=== PATIENT | female | born 1945 | race Caucasian/White ===

== ENCOUNTER → 2016-08-07 | Outpatient (CLI) | payer OTHER, MEDICARE | LOC: BMCIMAGING 08:58 | DX: Z12.31 Encounter for screening mammogram for malignant neoplasm of breast (principal) | CPT/HCPCS: G0202 ==

== ENCOUNTER 2017-04-29 05:41 | Observation (INO) | payer OTHER, MEDICARE ==
[2017-04-29] MEDS ORDERED: ROPIVACAINE 0.2% 80 MG, EPINEPHrine 0.2 MG, KETOROLAC TROMETHAMINE 30 MG in SYRINGE 0 ML IU ONE ×2 (06:00→13:05)
[2017-04-29] MEDS ORDERED: FAMOTIDINE 20 MG TAB PO ONE (06:16)
[2017-04-29] MEDS ORDERED: ceFAZolin 2 GM/SWFI 2 GM/20 ML SYR IVP ONE (06:16)
[2017-04-29] MEDS ORDERED: DEXAMETHASONE 4 MG/ML VIAL IVP ONE (06:16)
[2017-04-29] MEDS ORDERED: LIDOCAINE 1% 2 ML INJ ID PRN (06:16)
[2017-04-29] MEDS ORDERED: LR 1,000 ML IV ONE (06:16)
[2017-04-29] MEDS ORDERED: ACETAMINOPHEN 325 MG TAB PO ONE (06:16)
[2017-04-29] MEDS ORDERED: CALCIUM CHLORIDE 1 GM/10 ML INJ ONE (07:02)
[2017-04-29] MEDS ORDERED: THROMBIN (BOVINE) 5,000 UNIT VIAL TP ONE (07:02)
--- NOTE | 2017-04-29 07:02 | PDHPUP ---
History & Physical Update H&P update statement: This history and physical update is based on an assessment of the patient which was completed after admission or registration (within 24 hours), but prior to the surgery/procedure. H&P update: H&P reviewed & patient examined, no change in patient's condition since H&P completed
[2017-04-29] MEDS ORDERED: ceFAZolin 1 GM/5 ML SYR ONE (07:03)
[2017-04-29] MEDS ORDERED: MIDAZOLAM 2 MG/2 ML VIAL ONE (07:06)
[2017-04-29] MEDS ORDERED: MIDAZOLAM 2 MG/2 ML VIAL IVP ONE (07:08)
[2017-04-29] MEDS ORDERED: fentaNYL 100 MCG/2 ML INJ ONE ×3 (07:16→11:06)
[2017-04-29] MEDS ORDERED: PROPOFOL/EMULSION 500 MG/50 ML BOTTLE IV ONE ×3 (07:34→08:59)
[2017-04-29] MEDS ORDERED: epHEDrine SULFATE 10 MG/ML SYR IVP PRN (07:52)
[2017-04-29] MEDS ORDERED: ONDANSETRON 4 MG/2 ML VIAL IVP PRN ×2 (07:52→10:57)
[2017-04-29] MEDS ORDERED: PHENYLEPHRINE HCL 100 MCG/ML SYR IVP PRN (07:52)
[2017-04-29] MEDS ORDERED: NALOXONE HCL 0.4 MG/ML INJ IVP PRN (07:52)
[2017-04-29] MEDS ORDERED: HYDROmorphONE/DILAUDID 1 MG/ML INJ IVP PRN (07:52)
[2017-04-29] MEDS ORDERED: PROMETHAZINE HCL 25 MG/ML INJ IVP PRN ×2 (07:52→10:57)
[2017-04-29] MEDS ORDERED: DEXAMETHASONE 4 MG/ML VIAL IVP PRN (07:52)
[2017-04-29] MEDS ORDERED: ALBUTEROL 3 ML DEYVIAL IH PRN (07:52)
--- NOTE | 2017-04-29 07:52 | PDANEPAE ---
ANE History of Present Illness here for R TKA ANE Past Medical History - Cardiovascular History Hx Hypertension: Yes Hx Arrhythmias: No Hx Chest Pain: No Hx Coronary Artery / Peripheral Vascular Disease: No Hx CHF / Valvular Disease: No Hx Palpitations: No Cardiovascular History Comment: TIA 2012 unknown etiology - Pulmonary History Hx COPD: No Hx Asthma/Reactive Airway Disease: No Hx Recent Upper Respiratory Infection: No Hx Oxygen in Use at Home: No Hx Sleep Apnea: No Sleep Apnea Screening Result - Last Documented: Positive - Neurologic History Hx Cerebrovascular Accident: Yes Hx Seizures: No Hx Dementia: No Neurologic History Comment: TIA 2012 - Endocrine History Hx Diabetes: No - Renal History Hx Renal Disorders: No - Liver History Hx Hepatic Disorders: No - Neurological & Psychiatric Hx Hx Neurological and Psychiatric Disorders: Yes Neurological / Psychiatric History Comment: depression - Cancer History Hx Cancer: No - Congenital Disorder History Hx Congenital Disorders: No - GI History Hx Gastrointestinal Disorders: Yes Gastrointestinal History Comment: heartburn - Other Health History Other Health History: arthritis - Chronic Pain History Chronic Pain: No - Surgical History Prior Surgeries: x 2. hysterectomy. ORIF right wrist ANE Review of Systems Review of systems is: negative Review of Systems: - Exercise capacity Exercise capacity: >=4 METS METS (RN): 4 METS ANE Patient History - Allergies Allergies/Adverse Reactions: Penicillins Allergy (Verified 10/06/12 13:16) Tetracyclines Allergy (Verified 10/06/12 13:16) - Home Medications Home medications: home medication list seen and reviewed Home Medications: Aspirin [Aspirin 81mg (OTC)] 81 mg PO HS 10/06/12 [Last Taken 04/05/17] Citalopram [celeXA 20 MG (RX)] 20 mg PO DAILY 10/06/12 [Last Taken 04/29/17 04: 00] Irbesartan [Avapro 150 mg (RX)] 150 mg PO DAILY 10/06/12 [Last Taken 04/29/17 04 :00] Simvastatin [Zocor 20 mg (RX)] 20 mg PO DAILY18 10/06/12 [Last Taken 1 Day Ago ~ 04/28/17] amLODIPine BESYLATE [Norvasc] 10 mg PO DAILY 10/06/12 [Last Taken 04/29/17 04:00 ] Clopidogrel Bisulfate [Plavix (*)] 75 mg PO DAILY 03/29/17 [Last Taken 04/21/17] Herbals/Supplements -Info Only 1 ea PO DAILY 03/29/17 [Last Taken 1 Day Ago ~] Hydrochlorothiazide [HCTZ (*)] 25 mg PO DAILY 03/29/17 [Last Taken 1 Day Ago ~] - NPO status NPO Status: no food or drink >8 hours NPO Since - Liquids (Date): 04/28/17 NPO Since - Liquids (Time): 22:00 NPO Since - Solids (Date): 04/28/17 NPO Since - Solids (Time): 19:30 - Smoking Hx Smoking Status: Never smoked - Family Anes Hx Family Hx Anesthesia Complications: none ANE Labs/Vital Signs - Vital Signs Vital Signs: reviewed preoperatively; see RN documention for details Blood Pressure: 120/70 Heart Rate: 86 Respiratory Rate: 18 O2 Sat (%): 92 Height: 170.18 cm Weight: 108.862 kg ANE Physical Exam - Airway Neck exam: short neck Mallampati Score: Class 2 Mouth exam: normal dental/mouth exam - Pulmonary Pulmonary: no respiratory distress - Cardiovascular Cardiovascular: regular rate and rhythym - ASA Status ASA Status: III ANE Anesthesia Plan Anesthesia Plan: spinal
[2017-04-29] MEDS ORDERED: PROPOFOL 200 MG/20 ML VIAL ONE ×2 (09:56→10:10)
--- NOTE | 2017-04-29 10:55 | POSTOPPROG ---
Post Op Note Date of Operation: 04/29/17 Surgeon: Carol Ayers Dialysis Biomed Technician: Yvonne Reece PA-C Anesthesiologist: Dr. Jose Luis Collazo Anesthesia: GET(General Endotracheal) Pre-op Diagnosis: right knee osteoarthritis Post-op Diagnosis: right knee osteoarthritis Indication: right knee pain Procedure: right TKA Inf/Abcess present in the surg proc area at time of surgery?: No EBL: 50-100 Complications: none
[2017-04-29] MEDS ORDERED: BISACODYL 10 MG SUPP PR PRN (10:57)
[2017-04-29] MEDS ORDERED: CYCLOBENZAPRINE 10 MG TAB PO PRN (10:57)
[2017-04-29] MEDS ORDERED: PROMETHAZINE HCL 25 MG SUPPR PR PRN (10:57)
[2017-04-29] MEDS ORDERED: POLYETHYLENE GLYCOL 3350 17 GM PKT PO PRN (10:57)
[2017-04-29] MEDS ORDERED: DIPHENOXYLATE/ATROPINE LOMOTIL 1 TAB PO PRN (10:57)
[2017-04-29] MEDS ORDERED: LACTULOSE 20 GM/30 ML UDCUP PO PRN (10:57)
[2017-04-29] MEDS ORDERED: ONDANSETRON DISINTEGRATING 4 MG TAB PO PRN (10:57)
[2017-04-29] MEDS ORDERED: MAGNESIUM HYDROXIDE 30 ML UDCUP PO PRN (10:57)
[2017-04-29] MEDS ORDERED: diphenhydrAMINE 25 MG CAP PO PRN (10:57)
--- NOTE | 2017-04-29 10:57 | SOAPPROG ---
SOAP Progress Note Assessment/Plan: Assessment/Plan: 71y/o female s/p right TKA - orders as written - no knee flexion beyond 60 degrees, t-scope brace - xrays pending - PT/OT - will likely resume Plavix POD#1 - anticipate dc home tomorrow pending clinical course - call with issues or concerns 04/29/17 10:55 Subjective: Minimal pain Objective: Vital Signs Temp Pulse Resp BP Pulse Ox 36.8 C 86 18 120/70 92 04/29/17 06:21 04/29/17 07:52 04/29/17 07:52 04/29/17 07:52 04/29/17 07:52 NAD, no distress EOMi, face symmetric MAEx4 incision clean, dressed ICD10 Worksheet Patient Problems: Problems Problem Status Onset Knee pain Acute - ICD10 Problem Qualifiers (1) Knee pain
--- NOTE | 2017-04-29 10:59 | POSTANESTH ---
Post Anesthetic Evaluation Cardiovascular Status: Normal, Stable Respiratory Status: Normal, Stable Level of Consciousness/Mental Status: Can Participate in Eval Pain Control: Adequate, Prn Tx Ordered Nausea/Vomiting Control: Adequate, Prn Tx Ordered Complications Possibly Related to Anesthesia: None Noted
[2017-04-29] MEDS ORDERED: LR 1,000 ML IV SCH (11:00)
[2017-04-29] MEDS: fentaNYL 100 MCG/2 ML INJ IVP PRN ×3 (11:08→11:23)
[2017-04-29 12:03] VITALS: RESP 16
[2017-04-29] MEDS: ACETAMINOPHEN 325 MG TAB PO SCH ×2 (12:47→17:35)
[2017-04-29] MEDS: oxyCODONE IR 5 MG TAB PO PRN ×2 (14:59→21:16)
[2017-04-29] MEDS: ceFAZolin 2 GM/DEXTROSE 100 ML IV SCH ×2 (15:02→21:26)
--- NOTE | 2017-04-29 18:14 | GOP ---
[f rep st] OPERATIVE REPORT DATE OF OPERATION: 04/29/2017 SURGEON: Carol Ayers MD SAP PI ARCHITECT: Yvonne Reece, GEORGINA. ANESTHESIA: General with spinal. PREOPERATIVE DIAGNOSIS: Severe osteoarthritis, right knee. POSTOPERATIVE DIAGNOSIS: Severe osteoarthritis, right knee. PROCEDURE PERFORMED: Right total knee arthroplasty. FINDINGS: Preoperative exam of the patient's right knee demonstrated findings consistent with severe osteoarthritis. The patient had a preoperative flexion contracture measuring about 7 or 8 degrees. At the time of surgery a cemented Townsend [employer] II total knee arthroplasty was performed. A size 4 femoral component was implanted, and a size 5 tibial component was utilized. A 10 mm thic k cross-linked polyethylene insert was used in the metal backing of the tibia. A 35 mm round patella r button was used on the patella. The components were cemented into place, and the knee was taken th rough a range of motion. She achieved full extension and 130 degrees of flexion on the table. The k nee was stable to varus and valgus stress both in extension and flexion. ESTIMATED BLOOD LOSS: 150 cc. DESCRIPTION OF PROCEDURE: The patient was taken the operating room, placed in supine position on the operating table. Following placement of a spinal block and induction of adequate general inhalation anesthesia, the knee and leg were prepped and draped in the usual sterile manner. The patient recei santos 2 g of IV Ancef. The leg was elevated and exsanguinated, and the tourniquet inflated to 300 mmHg . The DeMayo leg damico was used through the procedure for positioning. A midline incision was made extending from 2 fingerbreadths above the superior pole of the patella distally to the tibial tuberc le. Incision was carried down through the subcutaneous tissue to the retinaculum of the knee. A med ial parapatellar arthrotomy was then performed. The patella was everted laterally and the thickness was measured. A 9 mm cut was taken from the patella. The metal patellar plate was placed on the cut surface and the patella was placed in the lateral gutter. Our attention was then turned to the femur. The distal femoral cut was made using intramedullary ref erencing. The jig was positioned on the distal femur and a +2 cut was taken due to the patient's pre existing flexion contracture. The block was then removed and the patella was sized. The size 4 femo ral component was felt to be the best fit. The size 4 femoral cutting block was then positioned on t he distal femur and the anterior, posterior and chamfer cuts were made. The notch was cleared with a reamer followed by the box osteotome. Our attention was then turned to the tibia. Again, intramedullary referencing was utilized. The int ramedullary guide was inserted and then the tibial block was positioned appropriately and pinned. Th e tibial cut was made. The lollipop spacer was then used to determine the flexion and extension gaps and the extension gap was still, tight so an additional 4 mm was taken from the proximal tibia. The tibia was then sized, and a size 5 tibial component was felt to be the best fit. It was pinned and then the femur was placed back on the distal femur and the 9 and 10 mm polyethylenes were trialed. T he best fit was with a 10 mm polyethylene. The trial components were removed except for the tibia, a nd the keel punch was utilized. The tibial component was then removed. The patella was prepared by drilling the cut surface of the patella. All the bony surfaces were thoroughly irrigated and dried, and then cement was mixed. The tibial component was inserted first, followed by the femoral componen t and the patella. The knee was then brought into extension with the 10 mm thick polyethylene in [place] ce. All excess cement was removed from around the edges of the components. Once the cement was hard , the polyethylene was removed and the posterior capsule was injected with joint cocktail. Prior to cementing the components, the osteophytes were removed from around the posterior tibia and femur as w ell. The polyethylene was then inserted and impacted into place. The knee was taken through a range of motion, and noted to be stable in flexion and extension. The wound was thoroughly irrigated out and the retinaculum of the knee was closed using #2 FiberWire in a [id number] fashion. The subcutaneous tissues were closed using 2-0 Vicryl in interrupted f ashion. The skin was closed using maria teresa. There was some fraying of the medial 25% to 30% of the p atellar tendon, so the patient was placed in a hinged knee brace from 0-60 for the first 2 weeks. Pl atelet gel was used in the deep and superficial portions of the wound to enhance wound healing. The remainder of the joint cocktail was injected into the extensor mechanism. The patient tolerated the procedure well. There were no complications. Estimated blood loss minimal. Final sponge and needle counts were correct. The patient was transported to the recovery room in good condition. /[id number]/MODL
[2017-04-29] MEDS: Simvastatin [Zocor] 20 MG PO SCH (18:46)
[2017-04-29] MEDS: SENNOSIDES/DOCUSATE SODIUM TAB PO SCH (21:16)
[2017-04-29] MEDS: FAMOTIDINE 20 MG TAB PO SCH (21:16)
[2017-04-29] MEDS ORDERED: FLU VACC QS 2017-18 (3YR+)/PF 0.5 ML SYR (FLUARIX QUAD) IM ONE (22:46)
[2017-04-30] MEDS: ACETAMINOPHEN 325 MG TAB PO SCH ×5 (00:24→23:46)
[2017-04-30] MEDS: oxyCODONE IR 5 MG TAB PO PRN ×6 (03:37→23:47)
[2017-04-30] MEDS: FAMOTIDINE 20 MG TAB PO SCH ×2 (08:36→20:40)
[2017-04-30] MEDS: SENNOSIDES/DOCUSATE SODIUM TAB PO SCH ×2 (08:36→20:40)
[2017-04-30] MEDS: FERROUS SULFATE 140 MG TAB.ER PO SCH (08:36)
[2017-04-30] MEDS: IRBESARTAN 150 MG TAB PO SCH (08:37)
[2017-04-30] MEDS: HYDROCHLOROTHIAZIDE 25 MG TAB PO SCH (08:39)
--- NOTE | 2017-04-30 14:36 | SOAPPROG ---
SOAP Progress Note Assessment/Plan: Assessment/Plan: 71y/o female s/p right TKA - orders as written - no knee flexion beyond 60 degrees, t-scope brace; this is to allow for patellar tendon healing - xrays show stable hardware - PT/OT, stairs prior to discharge - will resume Plavix tomorrow morning; continue TEDs/SCDs - anticipate dc home tomorrow tomorrow with home health care pending clinical course - call with issues or concerns 04/30/17 14:32 Subjective: Pain well controlled. [place] a little light headed this morning, improved now. Objective: Vital Signs Temp Pulse Resp BP Pulse Ox 36.7 C 72 16 106/57 L 94 04/30/17 12:00 04/30/17 12:00 04/30/17 12:00 04/30/17 12:00 04/30/17 12:00 Laboratory Results 04/30/17 04:21 04/29/17 04/30/17 05/01/17 05:59 05:59 05:59 Intake Total 1825 Output Total 1875 Balance -50 NAD, well appearing, no distress EOMi, face symmetric MAEx4 knee extension 5 flexion 60 incision CDI, no erythema or active drainage new dressing placed in sterile fashion ICD10 Worksheet Patient Problems: Problems Problem Status Onset Knee pain Acute - ICD10 Problem Qualifiers (1) Knee pain
--- NOTE | 2017-04-30 14:52 | PDIAF ---
- Diagnosis Diagnosis: right TKA Code Status: Full Code - Medication Management Discharge Medications: Medications to Continue on Transfer Citalopram [celeXA 20 MG (RX)] 20 mg PO DAILY 10/06/12 [Last Taken 04/29/17 04: 00] Irbesartan [Avapro 150 mg (*)] 150 mg PO DAILY 10/06/12 [Last Taken 04/29/17 04: 00] Simvastatin [Zocor 20 mg] 20 mg PO DAILY18 10/06/12 [Last Taken 1 Day Ago ~04/28] amLODIPine BESYLATE [Norvasc 10 mg (*)] 10 mg PO DAILY 10/06/12 [Last Taken 04:00] Clopidogrel Bisulfate [Plavix (*)] 75 mg PO DAILY 03/29/17 [Last Taken 04/21/17] Herbals/Supplements -Info Only 1 ea PO HS 03/29/17 [Last Taken 1 Day Ago ~] Hydrochlorothiazide [HCTZ (*)] 25 mg PO DAILY 03/29/17 [Last Taken 1 Day Ago ~] Ibuprofen [Motrin (*)] 200 - 600 mg PO Q6H PRN 04/29/17 [Last Taken Unknown] Acetaminophen [Tylenol 325mg (*)] 650 mg PO Q6HRS tab 04/30/17 [Last Taken Unknown] Ferrous Sulfate [Slow Fe 140 MG (*)] 140 mg PO DAILY tab.er 04/30/17 [Last Taken Unknown] oxyCODONE IR [Oxycodone Ir (*)] 5 - 10 mg PO Q3HRS PRN tab 04/30/17 [Last Taken Unknown] Discharge Medications: Refer to the Discharge Home Medication list for PRN reason. - Orders Services needed: Home Care, Physical Therapy, Occupational Therapy Home Care Face to Face: I certify that this patient was under my care and that I had the required [id number] encounter meeting the encounter requirements on the discharge day. My findings support the fact that the patient is homebound as defined in Home Care Face to Face Continued: CMS Chapter 7 Medicare Benefits Manual 30.1.1 , The condition of the patient is such that there exists a normal inability to leave home and consequently, leaving home would require a considerable and taxing effort. Diet Recommendation: no restrictions on diet Diet Texture: Regular Texture Diet Maurilio Stockings Discontinue Date: continue until ambulating 100 yards tid Wound Care Instructions: keep incision clean and dry Sutures/Ona Site: maria teresa will be removed at post-op appointment Activity/Weight Bearing Restrictions: weight bearing as tolerated. no knee flexion beyond 60 degrees - Follow Up Care Current Providers and Referrals: Amarilis Crespo MD [Primary Care Provider] - Carol Ayers MD [Medical Doctor] - 05/13/17 4:00 pm
--- NOTE | 2017-04-30 16:18 | ASMTCMCOM ---
CM Note CM Note Notes: Pt has [facility] set up w [facility] PT/OT, referral and orders sent in [employer]. Pt likely d/c tomorrow. Date Signed: 04/30/2017 04:18 PM Electronically Signed By:NAYANA Olivares
[2017-04-30] MEDS: Simvastatin [Zocor] 20 MG PO SCH (18:42)
[2017-04-30 22:56] VITALS: TEMP 98.4
[2017-05-01] MEDS: oxyCODONE IR 5 MG TAB PO PRN ×3 (05:10→11:10)
[2017-05-01] MEDS: ACETAMINOPHEN 325 MG TAB PO SCH ×2 (05:11→11:11)
[2017-05-01 07:46] VITALS: BP 136/61; PULSE 84; O2SAT 92
[2017-05-01] MEDS: HYDROCHLOROTHIAZIDE 25 MG TAB PO SCH (08:56)
[2017-05-01] MEDS: IRBESARTAN 150 MG TAB PO SCH (08:57)
[2017-05-01] MEDS: FERROUS SULFATE 140 MG TAB.ER PO SCH (08:58)
[2017-05-01] MEDS: SENNOSIDES/DOCUSATE SODIUM TAB PO SCH (08:59)
[2017-05-01] MEDS: FAMOTIDINE 20 MG TAB PO SCH (08:59)
[2017-05-01] MEDS ORDERED: CLOPIDOGREL BISULFATE 75 MG TAB PO SCH (09:00)
[2017-05-01] MEDS ORDERED: CITALOPRAM 20 MG TAB PO SCH (09:00)
--- NOTE | 2017-05-01 14:14 | ASDISCHSUM ---
Discharge Information Plan Status:Home with Home Health Medically Cleared to Leave: Discharge Date:05/01/2017 12:08 PM CM D/C Disposition:Home Health Service ADT D/C Disposition:[id number] Projected Discharge Date:05/01/2017 11:00 AM Transportation at D/C: Discharge Delay Reason: Follow-Up Date:05/01/2017 11:00 AM Discharge Slot: Final Diagnosis: Placement Information Referral Type:*Home Health Care Services Referral ID:[id number] Provider Name:[facility] [place] Address 1:[address] [place] [address] Address 2: City:[place] Selection Factors: State:[place] Patient Contact Information Contact Name:ARIN Relationship: Address:[address] City:[place] Alternate Phone: State/Zip Code:[place] [address] Email: Financial Information Financial Class: Primary Plan Desc:MEDICARE OUTPATIENT Primary Plan Number:[id number] Secondary Plan Desc:[employer]/MDR SUPPLEMENT Secondary Plan Number:[id number] Assessment Information [facility] CM Progress Note CM Note CM Note Notes: Pt has [facility] set up w [facility], referral and orders sent in [employer]. Pt likely d/c tomorrow. Date Signed: 04/30/2017 04:18 PM Electronically Signed By:NAYANA Olivares Intervention Information Intervention Type:MILENA-Signed Date of Service:04/30/2017 09:56 AM Patient Type:Observation Staff Member:Teresa Byrd Hours: Discipline: Severity: Comment:
== END 2017-05-01 12:08 | disposition home health service (06) ==
LOC: F3N 05:41 → INTOOBSV 05:41 → F3N 11:52
PROVIDERS: ADMIT Orthopaedic Surgery; ATTEND Orthopaedic Surgery
PROC: 0SRC0JZ Replacement of Right Knee Joint with Synthetic Substitute, Open Approach (ICD-10-PCS; principal; 2017-04-29 07:15)
DX: M17.11 Unilateral primary osteoarthritis, right knee (principal); I10 Essential (primary) hypertension; E78.5 Hyperlipidemia, unspecified; R73.09 Other abnormal glucose; Z86.73 Personal history of transient ischemic attack (TIA), and cerebral infarction without residual deficits
CPT/HCPCS: 27447; 73560; 88311; 90686; 97116; 97162; 97165; 97530; 97535; C1713; C1776; G0008; G8978; G8979; G8980; G8987; G8988; G8989; J0171; J0690; J1100; J1885; J2250; J2704; J2795; J3010; L1832

== ENCOUNTER → 2017-08-20 | Outpatient (CLI) | payer OTHER, MEDICARE | LOC: BMCIMAGING 07:54 | PROVIDERS: ATTEND Internal Medicine | DX: Z12.31 Encounter for screening mammogram for malignant neoplasm of breast (principal) ==

== ENCOUNTER → 2018-09-25 | Outpatient (CLI) | payer OTHER, MEDICARE | LOC: BMCIMAGING 13:10 ==